=== PATIENT | female | born 2000 | race Two or more races ===

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

== ENCOUNTER 2022-06-15 15:36 | Emergency (ER) | payer SELFPAY ==
[~2022-06-15] VITALS: Ht 165.1 cm; Wt 104.5 kg
[2022-06-15] MEDS ORDERED: SODIUM CHLORIDE 0.9% 1,000 ML IV ONE (16:45)
[2022-06-15] MEDS ORDERED: KETOROLAC TROMETHAMINE 30 MG/ML VIAL IVP ONE (16:45)
[2022-06-15] MEDS ORDERED: ACETAMINOPHEN 500 MG TABLET PO ONE (16:45)
[2022-06-15] MEDS ORDERED: LIDOCAINE 5% TRANSDERMAL PATCH TD ONE (16:45)
[2022-06-15 17:13] VITALS: BP 128/82
== END 2022-06-15 17:57 | disposition home or self-care (01) ==
LOC: EMS 15:36
DX: S06.0X0A Concussion without loss of consciousness, initial encounter (principal); M54.50 Low back pain, unspecified; V49.59XA Passenger injured in collision with other motor vehicles in traffic accident, initial encounter; Y93.89 Activity, other specified; Y92.89 Other specified places as the place of occurrence of the external cause; Y99.8 Other external cause status
CPT/HCPCS: 99283; 96374; 96361; J1885; J7030

== ENCOUNTER 2022-11-23 05:42 | Emergency (ER) | payer SELFPAY ==
[~2022-11-23] VITALS: Ht 162.6 cm; Wt 113.6 kg
[2022-11-23] MEDS ORDERED: PERTUSS(ACELL),DIPH,TET VAC/PF 0.5 ML SYRINGE IM. ONE (06:30)
[2022-11-23] MEDS ORDERED: BACITRACIN 0.9 GM PACKET OINTMENT TP ONE (06:30)
[2022-11-23 06:49] VITALS: BP 118/79
== END 2022-11-23 07:27 | disposition home or self-care (01) ==
LOC: EMS 05:42
DX: S51.811A Laceration without foreign body of right forearm, initial encounter (principal); F10.20 Alcohol dependence, uncomplicated; F17.210 Nicotine dependence, cigarettes, uncomplicated; W25.XXXA Contact with sharp glass, initial encounter; Y93.89 Activity, other specified; Y92.89 Other specified places as the place of occurrence of the external cause; Y99.8 Other external cause status
CPT/HCPCS: 12001; 90471; 90715; 99283